=== PATIENT | female | born 1995 | race African-American/Black ===

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

== ENCOUNTER 2019-08-12 22:46 | Emergency (ER) | payer MEDICAID ==
[~2019-08-12] VITALS: Ht 172.7 cm; Wt 68.0 kg
[2019-08-12 22:48] VITALS: BP 122/66
[2019-08-12] MEDS ORDERED: KETOROLAC 30MG/ML VIAL IM ONE (23:45)
== END 2019-08-13 01:40 | disposition home or self-care (01) ==
LOC: ER 22:46
DX: G89.29 Other chronic pain (principal); M54.2 Cervicalgia; S16.1XXS Strain of muscle, fascia and tendon at neck level, sequela; F12.10 Cannabis abuse, uncomplicated; V49.9XXS Car occupant (driver) (passenger) injured in unspecified traffic accident, sequela
CPT/HCPCS: 99283; J1885

== ENCOUNTER 2019-08-15 03:18 | Emergency (ER) | payer MEDICAID, OTHER ==
[~2019-08-15] VITALS: Ht 165.1 cm; Wt 63.0 kg
[2019-08-15] MEDS ORDERED: CYCLOBENZAPRINE 10MG TABLET PO ONE (03:45)
[2019-08-15] MEDS ORDERED: KETOROLAC 30MG/ML VIAL IM ONE (03:45)
[2019-08-15 06:01] VITALS: BP 120/77
== END 2019-08-15 06:01 | disposition home or self-care (01) ==
LOC: ER 03:18
DX: S39.012A Strain of muscle, fascia and tendon of lower back, initial encounter (principal); F12.10 Cannabis abuse, uncomplicated; Z87.19 Personal history of other diseases of the digestive system; X50.0XXA Overexertion from strenuous movement or load, initial encounter; Y93.89 Activity, other specified; Y92.018 Other place in single-family (private) house as the place of occurrence of the external cause
CPT/HCPCS: 72100; 99283; J1885

== ENCOUNTER 2019-08-15 08:13 | Emergency (ER) | payer MEDICAID, OTHER ==
[~2019-08-15] VITALS: Ht 157.5 cm; Wt 64.0 kg
[2019-08-15] MEDS ORDERED: KETOROLAC 30MG/ML VIAL IV STA (08:43)
[2019-08-15 09:11] LABS: CHLORIDE 105 mEq/L (98-107)
[2019-08-15 09:13] LABS: HCG SCREEN NEGATIVE
[2019-08-15 09:14] LABS: BASOPHILS % 0.7 % (0.0-2.0); EOSINOPHILS % 1.4 % (0.0-5.0); HEMOGLOBIN. 11.6 g/dL (12.0-16.0); LYMPHOCYTES % 29.1 % (20.0-50.0); MEAN CORPUSCULAR HEMOGLOBIN 29.4 pg (28.0-32.0); MEAN CORPUSCULAR VOLUME 86.4 fL (81.0-99.0); MEAN PLATELET VOLUME 7.1 fl (7.4-10.4); MONOCYTES % 9.4 % (2.0-8.0); NEUTROPHILS % 59.4 % (40.0-76.0); PLATELET 249 x1000/uL (130-400); RED BLOOD CELL COUNT 3.93 mill/uL (4.2-5.4); RED CELL DISTRIBUTION WIDTH 12.2 % (11.6-14.6)
[2019-08-15 09:18] LABS: INR 1.1; PROTHROMBIN TIME 11.4 sec (9.6-11.0)
[2019-08-15 09:51] LABS: CLARITY URINE CLEAR (CLEAR); COLOR URINE YELLOW (YELLOW); KETONES URINE TRACE (NEGATIVE); LEUKOCYTE ESTERASE URINE 1+ (NEGATIVE); NITRITE URINE NEGATIVE (NEGATIVE); OCCULT BLOOD URINE NEGATIVE (NEGATIVE); PROTEIN URINE TRACE (NEGATIVE); SPECIFIC GRAVITY URINE 1.028 (1.005-1.030)
[2019-08-15 10:19] VITALS: BP 111/58
== END 2019-08-15 10:21 | disposition home or self-care (01) ==
LOC: ER 08:24
DX: N39.0 Urinary tract infection, site not specified (principal); M79.10 Myalgia, unspecified site; F12.10 Cannabis abuse, uncomplicated; Z87.19 Personal history of other diseases of the digestive system
CPT/HCPCS: 36415; 80053; 81003; 81025; 83690; 84703; 85025; 85610; 96374; 99283; J1885